=== PATIENT | male | born 1975 | race Hispanic/Latino ===

== ENCOUNTER 2024-07-30 21:16 | Emergency (ER) | payer OTHER ==
[~2024-07-30] VITALS: Ht 170.2 cm; Wt 90.7 kg
[2024-07-30 21:19] VITALS: PULSE 86
[2024-07-30 21:55] LABS: CORONAVIRUS COVID-19 AG NEGATIVE (NEGATIVE); INFLUENZA A AG NEGATIVE (NEGATIVE); INFLUENZA B AG NEGATIVE (NEGATIVE); STREPTOCOCCUS GRP A ANTIGEN NEGATIVE (NEGATIVE)
[2024-07-30 22:14] VITALS: RESP 20; TEMP 98.5
[2024-07-30 23:21] VITALS: BP 126/78; PULSE 72; RESP 17; TEMP 98.4; O2SAT 98
== END 2024-07-30 23:26 | disposition home or self-care (01) ==
LOC: ER 21:22
DX: R05.9 Cough, unspecified (principal); J06.9 Acute upper respiratory infection, unspecified; B34.9 Viral infection, unspecified; Z11.52 Encounter for screening for COVID-19
CPT/HCPCS: 71045; 83518; 87070; 99283